=== PATIENT | female | born 2000 | race Caucasian/White ===

== ENCOUNTER 2021-01-29 00:30 | Emergency (ER) | payer BC ==
[~2021-01-29] VITALS: Ht 172.7 cm; Wt 68.0 kg
--- NOTE | 2021-01-29 00:35 | NUR ---
DOYLE BURTON VIA GURNEY TO BED 09.
--- NOTE | 2021-01-29 00:35 | NUR ---
20 YO F BIBA FOR DRUG INGESTION, PER EMS PT USED [facility] BECAME LETHARGIC AND PASSED OUT. PT ATTENDS [facility] [email or web address]. NO PRIOR MEDICAL HX. VACCINE: + COVID VACCINE ( UNKNOWN) NKA LMP: UNKNOWN
[2021-01-29 00:48] VITALS: BP 105/61
--- NOTE | 2021-01-29 01:35 | NUR ---
PT LAYING IN GURNEY; EYES CLOSED, AROUSABLE. VSS. WILL CONTINUE TO OBSERVE
[2021-01-29 02:00] LABS: BASOPHILS % (AUTO) 0.9 % (0.0-2.0); EOSINOPHILS # (AUTO) 0.1 K/uL (0-0.4); EOSINOPHILS % (AUTO) 1.4 % (0.0-4.0); HEMATOCRIT 34.3 % (36-48); HEMOGLOBIN 11.5 g/dL (12.0-16.0); LYMPHOCYTES # (AUTO) 1.3 K/uL (2.5-16.5); LYMPHOCYTES % (AUTO) 24.5 % (20.5-51.1); MEAN CORPUSCULAR HEMOGLOBIN 31 pg (27-31); MEAN CORPUSCULAR HGB CONC 34 g/dL (33-37); MEAN CORPUSCULAR VOLUME 90.9 fL (80-94); MONOCYTES # (AUTO) 0.3 K/uL (0.8-1.0); MONOCYTES % (AUTO) 6.3 % (1.7-9.3); NEUTROPHILS # (AUTO) 3.6 K/uL (1.8-7.7); NEUTROPHILS % (AUTO) 66.9 % (42.2-75.2); PLATELET COUNT (AUTO) 241 K/uL (140-450); RED BLOOD CELL COUNT(AUTO) 3.77 MIL/uL (4.20-5.40); RED CELL DISTRIBUTION WIDTH 12.7 % (11.6-13.7); WHITE BLOOD COUNT (AUTO) 5.3 K/uL (4.5-11.0)
[2021-01-29 02:24] LABS: ALBUMIN 4.2 g/dL (3.4-5.0); ANION GAP 13.8 (8-16); ASPARTATE AMINOTRANSFERASE 21 U/L (15-37); CARBON DIOXIDE 26.2 mmol/L (21-32); CHLORIDE 107 mmol/L (98-107); CREATININE 0.8 mg/dL (0.6-1.3); GFR ARICAN-AMERICAN 119 mL/min (>90); GLUCOSE 113 mg/dL (74-106); LIPASE 79 U/L (73-393); SALICYLATE < 2.8 mg/dL (2.8-20.0); SODIUM SERUM 143 mmol/L (136-145); TOTAL BILIRUBIN 0.3 mg/dL (0.0-1.0); UREA NITROGEN, BLOOD 17 mg/dL (7-18)
--- NOTE | 2021-01-29 02:25 | NUR ---
PT ROOM MATE @ BEDSIDE
--- NOTE | 2021-01-29 02:40 | NUR ---
PT AMB TO BATHROOM; URINE SAMPLE OBTAINED
[2021-01-29 02:53] LABS: APPEARANCE,URINE SL CLOUDY (CLEAR); BILIRUBIN,URINE NEGATIVE (NEGATIVE); BLOOD, URINE NEGATIVE (NEGATIVE); COLOR,URINE YELLOW (YELLOW); LEUKOCYTE ESTERASE ,URINE NEGATIVE (NEGATIVE); NITRITE, URINE NEGATIVE (NEGATIVE); UGLUCOSE NEGATIVE (NEGATIVE)
--- NOTE | 2021-01-29 02:59 | NUR ---
PT BROUGHT BACK FROM CT VIA [facility].
--- NOTE | 2021-01-29 03:00 | NUR ---
GABINO DUFFY,DERIVATIVES TRADER PT REFUSED HEAD CT. DR. QUINTANA MADE AWARE.
[2021-01-29 03:20] LABS: BARBITURATE, URINE NEGATIVE ng/ml (NEG <=200); BENZODIAZEPINE, URINE NEGATIVE ng/mL (NEG <=200); CANNABINOID, URINE POSITIVE ng/mL (NEG <=50); COCAINE, URINE NEGATIVE ng/mL (NEG <=300); OPIATE, URINE NEGATIVE ng/mL (NEG <=2000); PHENCYCLIDINE SCREEN,URINE NEGATIVE ng/mL (NEG <=25)
[2021-01-29] MEDS ORDERED: IBUP-2213 PO (03:26)
[2021-01-29 03:45] VITALS: BP 105/61
== END 2021-01-29 03:46 | disposition home or self-care (01) ==
LOC: MED 00:30
DX: F12.90 Cannabis use, unspecified, uncomplicated (principal); R55 Syncope and collapse; D64.9 Anemia, unspecified
CPT/HCPCS: 36415; 80053; 80305; 81003; 83690; 84703; 85025; 93005; 99284; G0480; G0482